=== PATIENT | female | born 1940 ===

== ENCOUNTER 2017-08-10 13:25 | Day surgery (SDC) | payer OTHER | END 2017-08-10 16:55 | disposition home or self-care (01) | LOC: AMB-ENDOS 13:25 | DX: K57.30 Diverticulosis of large intestine without perforation or abscess without bleeding (principal); N82.3 Fistula of vagina to large intestine; R19.4 Change in bowel habit; R19.5 Other fecal abnormalities ==

== ENCOUNTER 2018-10-04 06:11 | Day surgery (SDC) | payer OTHER ==
[~2018-10-04 06:11] MED LIST: METFORMIN HCL500 MG PO; NORVASC10 MG PO
== END 2018-10-04 16:10 | disposition home or self-care (01) ==
LOC: CIR.AMB 06:11
DX: T83.711A Erosion of implanted vaginal mesh to surrounding organ or tissue, initial encounter (principal)